=== PATIENT | female | born 1950 | race Caucasian/White ===

== ENCOUNTER 2019-10-17 11:55 | Outpatient (CLI) | payer MEDICARE, OTHER, SELFPAY ==
--- NOTE | 2019-10-17 11:45 | MR_ITS ---
WS: [id number] MRI THORACIC SPINE WITH CONTRAST TECHNIQUE: Sagittal T1, T2 and STIR imaging. Axial T2 imaging. Post gadolinium imaging was obtained. CLINICAL INFORMATION: back pain COMPARISON: MRI lumbar 12 26,019 FINDINGS: Mild thoracic curve. No acute compression. No high-grade central canal stenosis. CSF pulsation artifa ct in the dorsal spinal canal. Again seen is the ventral displacement of the mid thoracic cord with mild right flattening. Suspected dorsal arachnoid cyst measuring 3.8 x 0.8 cm. This extends over the T6 and T7 vertebral body levels. Cord signal remains normal. No abnormal enhancing lesions. Mild facet arthropathy in the lower thora cic spine. Normal caliber thoracic aorta. MR/MR thoracic spine wo/w [id number] IMPRESSION: 1. Again seen is dorsal displacement and flattening of the thoracic cord at th e T6-T7 level. Findings are suspicious for dorsal arachnoid cyst measuring 3.8 cm in craniocaudal dimension. This could be more definitively evaluated with th oracic myelogram to assess for dorsal filling defect. Additional less likely co nsiderations are idiopathic thoracic cord herniation and dorsal thoracic arachn oid web, although atypical. 2. Cord signal is otherwise normal. 3. Normal CSF pulsation artifact in the dorsal spinal canal 4. No abnormal gadolinium enhancement. 5. Mild facet arthropathy in the lower thoracic spine.
[2019-10-17 12:38] LABS: Blood Urea Nitrogen 10 mg/dL (8-23); Glomerular Filtration Rate 82.7 mL/min (90-130)
== END 2019-10-17 11:56 | disposition home or self-care (01) ==
LOC: RADSHAW 12:02
PROVIDERS: Family Provider Family Medicine; Visit Provider Specialist
DX: M54.6 Pain in thoracic spine (principal)
CPT/HCPCS: 72157; 82565; 84520; A9579

== ENCOUNTER 2020-01-24 09:25 | Outpatient (CLI) | payer MEDICARE, OTHER, SELFPAY ==
--- NOTE | 2020-01-24 09:00 | IR_ITS ---
WS: [id number] THORACIC AND LUMBAR MYELOGRAMs HISTORY: Chronic back pain. Possible arachnoid cyst. COMPARISON: MRI of thoracic spine 10/17/2019. FLUOROSCOPY TIME: 1.7 minutes. Procedure, risks and complications were explained to the patient. Risks including bleeding, infection , headaches, allergic reaction and seizures. Consent has been obtained. With the patient in prone position the skin over the lumbar region is cleansed with ChloraPrep and an esthetized with lidocaine. 22-gauge spinal needle is inserted into the thecal sac at the appropriate level determined by fluoroscopy. Omnipaque 300; 12 ml is injected slowly under fluoroscopy with no co mplications. Needle bevel is perpendicular to the longitudinal fibers of the dura. Stylet is reinsert ed prior to removal of the needle. Patient tolerated the procedure well. Patient will proceed to CT f or further evaluation. Uncomplicated injection into the thecal sac. There is mild thoracolumbar scoliosis and mild straighte anderson. No fractures are identified. No significant stenosis or compression upon the thecal sac. With f lexion and extension no instability of the lumbar spine. Mild facet joint arthritis at L5-S1. IR/IR myelogram spine thorac/lumb IMPRESSION: 1. Uncomplicated thoracic and lumbar myelograms. Please see CT reports to foll ow. 2. No lumbar spine instability. 3. Mild thoracolumbar scoliosis and straightening. 4. Mass described by MRI in the mid thoracic spine is not evident on this post myelographic radiographic imaging. Please refer to the CT report to follow.
--- NOTE | 2020-01-24 11:00 | CT_ITS ---
WS: [id number] CT MYELOGRAM LUMBAR SPINE HISTORY: abnormal mri, possible arachnoid cyst. TECHNIQUE: Contiguous 2.5 mm axial imaging performed from T12 through the mid sacral level. Bone and soft tissue windows reviewed. Sagittal and coronal reformats are submitted and reviewed. DLP: 1298.[address] scans at [facility] use at least one of these dose optimization techniques: automat ed exposure control; mA and/or kV adjustment per patient size (includes targeted exams where dose is matched to clinical indication); or iterative reconstruction. COMPARISON: MRI lumbar spine 09/28/2019 Increase in lumbar lordosis. Disc spaces are maintained. No fracture. L1-L2: Normal. L2-L3: Normal. L3-L4: Mild annular disc bulging with facet and ligamentum flavum arthropathy. L4-L5: Mild osteophytic ridging with facet and ligamentum flavum arthropathy. There is very slight na rrowing of the thecal sac with no significant stenosis. L5-S1: Broad-based minimal annular disc bulging. No stenosis. Mild atherosclerosis aorta. No paraspinal soft tissue abnormalities. CT/CT lumbar spine w con [id number] IMPRESSION: 1. No significant stenosis or disc protrusions or masses. 2. Mild facet joint arthritis from L3-4 to L5-S1.
[2020-01-24] MEDS: iohexol 300 mg/mL 50 mL Btl INTRATHECA (11:13)
--- NOTE | 2020-01-24 11:15 | CT_ITS ---
WS: [id number] CT THORACIC MYELOGRAM HISTORY: abnormal mri, possible arachnoid cyst. TECHNIQUE: Contiguous 2.5 mm axial images are reviewed to thoracic spine. Images are reformatted in s agittal and coronal planes. All CT scans at [facility] use at least one of these dose opt imization techniques: automated exposure control; mA and/or kV adjustment per patient size (includes targeted exams where dose is matched to clinical indication); or iterative reconstruction. DLP: 1137.75 mGycm COMPARISON: 10/17/2019 and MRI of thoracic spine Good distention of the thecal sac with contrast. There is a well-circumscribed intradural extramedull javier mass centered at the T6-7 level. Well circumscribed mass extends over a length of 4.2 cm and gordon sversely 1.4 cm. Mass is along the posterior thoracic cord with anterior displacement of the cord. We ll-circumscribed mass. No bone remodeling. No additional masses are identified. No atrophy of the cor d. There are no significant disc protrusions or herniations. CT/CT thoracic spine w con [id number] IMPRESSION: 1. Well-circumscribed intradural, extramedullary mass centered at the T6-7 lev el. Taken into consideration the thoracic MRI findings and the CT findings this is likely an arachnoid cyst. No enhancement was noted on the recent MRI. 2. Mild deformity of the thoracic cord by the intradural mass. No atrophy at t his time.
== END 2020-01-24 09:26 | disposition home or self-care (01) ==
LOC: RADWPI 09:30
PROVIDERS: Family Provider Family Medicine; PCP Family Medicine; Visit Provider Specialist
DX: R93.89 Abnormal findings on diagnostic imaging of other specified body structures (principal); Q89.8 Other specified congenital malformations; M13.88 Other specified arthritis, other site; M54.9 Dorsalgia, unspecified; G89.29 Other chronic pain; M41.85 Other forms of scoliosis, thoracolumbar region
CPT/HCPCS: 62305; 72129; 72132; Q9967

== ENCOUNTER → 2020-03-12 13:08 | Outpatient (BNVA) | payer MEDICARE, OTHER, SELFPAY | PROVIDERS: Family Provider Family Medicine; PCP Family Medicine; Visit Provider Specialist | DX: M79.7 Fibromyalgia (principal); J44.9 Chronic obstructive pulmonary disease, unspecified; E66.01 Morbid (severe) obesity due to excess calories; G31.84 Mild cognitive impairment of uncertain or unknown etiology; Z87.891 Personal history of nicotine dependence | CPT/HCPCS: 20550; 99215; J1030; J3490 ==

== ENCOUNTER → 2020-06-04 10:13 | Outpatient (BNVA) | payer MEDICARE, OTHER, SELFPAY | PROVIDERS: Family Provider Family Medicine; PCP Family Medicine; Visit Provider Specialist | DX: M79.7 Fibromyalgia (principal) | CPT/HCPCS: 20552; 99212 ==

== ENCOUNTER → 2020-06-25 15:22 | Outpatient (BNVA) | payer MEDICARE, OTHER, SELFPAY | PROVIDERS: Family Provider Family Medicine; PCP Family Medicine; Visit Provider Specialist | DX: M79.7 Fibromyalgia (principal); G96.19 Other disorders of meninges, not elsewhere classified; Z87.891 Personal history of nicotine dependence | CPT/HCPCS: 99215 ==

== ENCOUNTER → 2020-07-29 14:23 | Outpatient (BNVA) | payer MEDICARE, OTHER, SELFPAY | PROVIDERS: Family Provider Family Medicine; PCP Family Medicine; Referring Provider Specialist; Visit Provider Nurse Practitioner Family | DX: N39.0 Urinary tract infection, site not specified (principal); N39.46 Mixed incontinence | CPT/HCPCS: 80053; 81003; 87077; 87086; 87184 ==

== ENCOUNTER → 2020-09-17 10:18 | Outpatient (BNVA) | payer MEDICARE, OTHER, SELFPAY | PROVIDERS: Family Provider Family Medicine; PCP Family Medicine; Visit Provider Urology | DX: N39.0 Urinary tract infection, site not specified (principal); R32 Unspecified urinary incontinence | CPT/HCPCS: 81003 ==

== ENCOUNTER → 2020-12-11 10:40 | Outpatient (BNVA) | payer MEDICARE, OTHER, SELFPAY | PROVIDERS: Family Provider Family Medicine; PCP Family Medicine; Visit Provider Specialist | DX: M79.7 Fibromyalgia (principal); G96.198 Other disorders of meninges, not elsewhere classified; G47.10 Hypersomnia, unspecified; G31.84 Mild cognitive impairment of uncertain or unknown etiology; R07.9 Chest pain, unspecified; Z87.891 Personal history of nicotine dependence | CPT/HCPCS: 99215 ==

== ENCOUNTER 2020-12-31 08:43 | Outpatient (CLI) | payer MEDICARE, OTHER, SELFPAY ==
--- NOTE | 2020-12-31 08:50 | NMCV_ITS ---
NM corby perf SPECT r/s* [id number] Odilia Santana Age: 70 Gender: F : 1950 Exam Date: 12/31/2020 10:02 Ordering Phys: Beverly Rutledge MD Technologist: ANDRIA Garza Exam Location: [facility] Indications: PALPITATIONS STRESS TEST Please see separate stress test report in [facility] for full findings IMAGE PROTOCOL Rest/Stress 1 Lexiscan Day Radiopharmaceutical Dose (mCi) Administration Site Administered by Rest: Tc-99m 10.8 IV ANDRIA Miranda Sestamibi Stress:Tc-99m 32.3 IV ANDRIA Miranda Sestamibi Rest: 31-Dec-2020 60 Discovery 630 Stress: 31-Dec-2020 30 Discovery 630 0.4mg Lexiscan. Images obtained in supine and prone position. SPECT RESULTS Technical Quality: Excellent Raw Data Analysis: Breast attenuation Image Corrections: No attenuation or motion correction applied Summed Stress Score: 2 Summed Rest Score: 0 Summed Difference Score: 2 PERFUSION FINDINGS There is homogenous of the myocardium. No evidence of ischemia. FUNCTIONAL RESULTS (calculated via Gated SPECT) Stress Image LV EF (%): 79 Stress EDV (mL):63 TID: 0.8 Stress ESV (mL):13 FUNCTIONAL FINDINGS: There is normal left ventricular systolic function. IMPRESSIONS 1. Normal myocardial perfusion imaging with no evidence of ischemia. 2. LV systolic function is normal. Darrell Saldana MD (Electronically Signed) Final Date: 31 December 2020 13:19 S
[2020-12-31 08:58] VITALS: BMI 38.0
[2020-12-31] MEDS: regadenoson 0.4 Mg/5 ml Syringe IVP (10:39)
[2020-12-31] MEDS: ondansetron 2 mg/ML SDV 2 mL 4 MG IVP (10:39)
[2020-12-31] MEDS: aminophylline 25 mg/mL SDV 10 mL IVP (10:55)
--- NOTE | 2020-12-31 11:00 | ECG_ITS ---
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 Interpretive Statements NAME OF STUDY: LEXISCAN SESTAMIBI STRESS TEST INDICATION: [Chest Pain] Procedure: At the baseline, the blood pressure was 160/93 mmHg, heart rate of 101 bpm. Electrocardiogram showed sinus tachycardia, with normal ST-T waves. The Lexiscan was infused over a duration of 20 seconds. A total of 0.4 mg of Lexiscan was infused. The stress phase was continued for a total of 5 minutes. Heart rate at the end of stress phase was 118 bpm with a blood pressure of 212/88 mmHg. The EKG revealed sinus tachycardia with no significant ST-T wave changes. Sestamibi was injected 20 seconds after the Lexiscan infusion. Blood pressure at the end of recovery phase was 166/89 mmHg with a heart rate of 122 bpm. Conclusion: 1. Normal EKG response to Lexiscan infusion. 2. No Lexiscan induced chest pain or cardiac arrhythmia. 3. Normal blood pressure and heart rate response. 4. Sestamibi/sestamibi perfusion scan pending; see separate report. Electronically Signed On 01-05-2021 17:41:24 CDT by Darrell Saldana M.D. [id number]
[2020-12-31 11:54] VITALS: BP 166/89; PULSE 99
== END 2020-12-31 08:44 | disposition home or self-care (01) ==
LOC: CDL 08:44
PROVIDERS: PCP Family Medicine; Visit Provider Specialist
DX: R00.2 Palpitations (principal); R07.9 Chest pain, unspecified
CPT/HCPCS: 78452; 93017; 96374; A9500; J0280; J2405; J2785

== ENCOUNTER 2021-01-06 20:00 | Outpatient (CLI) | payer MEDICARE, OTHER, SELFPAY | END 2021-01-06 20:01 | disposition home or self-care (01) | LOC: SLEEP 01-07 08:29 | PROVIDERS: PCP Family Medicine; Visit Provider Specialist | DX: G47.30 Sleep apnea, unspecified (principal) | CPT/HCPCS: 95811 ==

== ENCOUNTER → 2021-05-15 12:35 | Outpatient (BNVA) | payer MEDICARE, OTHER, SELFPAY | PROVIDERS: PCP Family Medicine; Visit Provider Specialist | DX: G96.198 Other disorders of meninges, not elsewhere classified (principal); G31.84 Mild cognitive impairment of uncertain or unknown etiology; G43.711 Chronic migraine without aura, intractable, with status migrainosus; M79.7 Fibromyalgia; M54.2 Cervicalgia; R07.9 Chest pain, unspecified; G47.33 Obstructive sleep apnea (adult) (pediatric); Z71.89 Other specified counseling; Z87.891 Personal history of nicotine dependence | CPT/HCPCS: 96116; 99215 ==

== ENCOUNTER 2021-05-30 12:45 | Outpatient (CLI) | payer MEDICARE, OTHER, SELFPAY ==
--- NOTE | 2021-05-30 13:00 | MR_ITS ---
WS: [id number] MRI CERVICAL SPINE NONCONTRAST HISTORY: M54.2 - Cervicalgia COMPARISON: None available. Technique: Multiplanar, multisequence noncontrast imaging of the cervical spine. Normal cervical alignment. Very mild disc space narrowing and desiccation throughout the cervical spi ne. Endplate osteophytes at all levels. No fracture or marrow edema. Signal within the cervical cord is normal. Visualized posterior fossa is unremarkable. Craniocervical junction, C1 and C2 relationship, odontoid process and soft tissues are normal. Mild v entriculomegaly. Probably related to cerebral atrophy. C2-C3: Mild osteophytic ridging. No stenosis. C3-C4: Small LEFT foraminal osteophytes causing very mild foraminal narrowing. C4-C5: Osteophytic ridging with no disc protrusion. Mild bilateral foraminal narrowing. C5-C6: Diffuse osteophytic ridging and annular disc bulging. Very shallow central disc protrusion. Mi ld central and bilateral foraminal stenosis. C6-C7: Mild annular disc bulge with a central disc protrusion causing near contact on the ventral the edson sac. Mild effacement of CSF. Mild central and bilateral foraminal stenosis. C7-T1: Mild osteophytic ridging. No significant stenosis. Paraspinal soft tissue are normal. MR/MR cervical spin wo con* [id number] IMPRESSION: 1. No high-grade central or foraminal stenosis or cervical spine fracture. 2. Small central disc protrusion at C6-7 with effacement of CSF but no cord co ntact. 3. Mild central and bilateral foraminal stenosis at C5-6 and C6-7. 4. Mild foraminal narrowing on the LEFT at C3-4 and bilaterally at C4-5.
== END 2021-05-30 12:46 | disposition home or self-care (01) ==
LOC: RADSHAW 12:48
PROVIDERS: PCP Family Medicine; Visit Provider Specialist
DX: M50.223 Other cervical disc displacement at C6-C7 level (principal); M48.02 Spinal stenosis, cervical region
CPT/HCPCS: 72141

== ENCOUNTER 2021-07-01 06:00 | Outpatient (RCR) | payer MEDICARE, OTHER, SELFPAY | END 2021-07-03 23:59 | disposition home or self-care (01) | LOC: SPT 06:00 | PROVIDERS: PCP Family Medicine; Referring Provider Specialist; Visit Provider Specialist | DX: R42 Dizziness and giddiness (principal) | CPT/HCPCS: 95992; 97162 ==

== ENCOUNTER 2021-07-04 06:00 | Outpatient (RCR) | payer MEDICARE, OTHER, SELFPAY | END 2021-08-03 23:59 | disposition home or self-care (01) | LOC: MPT 06:00 | PROVIDERS: PCP Family Medicine; Referring Provider Specialist; Visit Provider Specialist | DX: R42 Dizziness and giddiness (principal) | CPT/HCPCS: 95992; 97110; 97112; 97140 ==

== ENCOUNTER 2021-08-04 06:00 | Outpatient (RCR) | payer MEDICARE, OTHER, SELFPAY | END 2021-09-02 23:59 | disposition home or self-care (01) | LOC: MPT 06:00 | PROVIDERS: PCP Family Medicine; Referring Provider Specialist; Visit Provider Specialist | DX: R42 Dizziness and giddiness (principal) | CPT/HCPCS: 97110; 97112 ==